=== PATIENT | male | born 1965 | race African-American/Black ===

== ENCOUNTER 2022-01-12 08:08 | Inpatient (IN) | payer BC, OTHER ==
[~2022-01-12] VITALS: Ht 177.8 cm; Wt 99.2 kg
[2022-01-12] MEDS ORDERED: SODIUM CHLORIDE 0.9% 1,000 ML IV ONE (08:15)
[2022-01-12] MEDS ORDERED: DONNATAL 5ml ORAL Elix (BELLADONNA ALK-PHENOBARB) PO ONE (09:15)
[2022-01-12] MEDS ORDERED: LIDOCAINE VISCOUS 2% 15ML UD PO ONE (09:15)
[2022-01-12] MEDS ORDERED: ALUM & MAG HYDROX-SIMETH LIQ(MAALOX) 30 ML PO ONE (09:15)
[2022-01-12 09:26] LABS: Basophils # (auto) 0 10 ^3/uL (0-0.2); Basophils % (auto) 0.5 % (0.0-2.0); Eosinophils # (auto) 0.1 10 ^3/uL (0-0.8); Eosinophils % (auto) 2.1 % (0.0-7.0); Hematocrit 40.6 % (41.0-53.0); Hemoglobin 14.1 g/dL (13.5-17.5); Lymphocytes % (auto) 32.3 % (10.0-50.0); Mean Corpuscular Hemoglobin 33.3 pg (28.0-32.0); Mean Corpuscular Hgb Conc. 34.9 g/dL (32.0-36.0); Mean Corpuscular Volume 95.5 fL (80.0-100.0); Monocytes # (auto) 0.4 10 ^3/uL (0-1.3); Monocytes % (auto) 5.9 % (0.0-12.0); Neutrophils # (auto) 3.7 10 ^3/uL (1.6-8.6); Neutrophils % (auto) 59.2 % (37.0-80.0); Nucleated Red Blood Cells % 0.1 %; Red Blood Cells 4.25 10^6/uL (4.5-5.90); Red Cell Distribution Width 13.1 % (11.8-14.3); White Blood Cell 6.2 10^3/uL (4.4-10.8)
[2022-01-12 11:20] LABS: Urine Bacteria NONE SEEN /hpf (None Seen); Urine Blood Negative /uL (Negative); Urine Mucus FEW (None Seen); Urine Specific Gravity 1.027 (1.001-1.035); Urine WBC 1 /hpf (0 - 3)
[2022-01-12 11:24] LABS: Alanine Aminotransferase 19 U/L (16-61); Alkaline Phosphatase 32 U/L (45-117); Anion Gap 5 (5-15); Aspartate Aminotransferase 12 U/L (15-37); BUN/Creatinine Ratio 12.6; Bilirubin, Total 0.4 mg/dL (0.2-1.0); Blood Urea Nitrogen 12 mg/dL (7-18); Calcium 8.8 mg/dL (8.5-10.1); Carbon Dioxide 24 mmol/L (21-32); Chloride 111 mmol/L (98-107); GFR African American 105 mL/min; GFR Non-African American 87 mL/min; Glucose 125 mg/dL (74-106); Potassium 3.9 mmol/L (3.5-5.1); Sodium 140 mmol/L (136-145)
[2022-01-12 11:25] LABS: Albumin 3.2 g/dL (3.4-5.0); Lipase 432 U/L (73-393)
[2022-01-12] MEDS ORDERED: metroNIDAZOLE 500MG/100ML 100 ML IV ONE (11:45)
[2022-01-12] MEDS ORDERED: cefTRIAXone 1GM/50ML D5W 50 ML IV ONE (11:45)
[2022-01-12] MEDS ORDERED: DOCUSATE SOD 100 MG CAP PO PRN (12:00)
[2022-01-12] MEDS ORDERED: NITROGLYCERIN 0.4 MG SL TAB SL PRN (12:00)
[2022-01-12] MEDS ORDERED: ONDANSETRON HCL 4 MG/2 ML VIAL IV PRN (12:00)
[2022-01-12] MEDS ORDERED: MORPHINE SULFATE INJECTION 2 MG/ML SYRG IV PRN (12:00)
[2022-01-12] MEDS ORDERED: hydrALAZINE HCL 20 MG/ML VL IV PRN (12:00)
[2022-01-12] MEDS ORDERED: IPRATROPIUM BROM 0.5 MG/2.5ML INH SOL NEB ONE (12:00)
[2022-01-12] MEDS ORDERED: MULTIPLE VITAMINS W/ MINERALS TAB PO ONE (12:00)
[2022-01-12] MEDS ORDERED: HYDROcodone-ACET 5/325MG TAB PO PRN ×2 (12:00)
[2022-01-12] MEDS ORDERED: HYDROcodone-ACET 5/325MG TAB PO ONE (12:00)
[2022-01-12] MEDS ORDERED: MEROPENEM 1GM IVPB 100 ML IV ONE (12:15)
[2022-01-12] MEDS: HYDROmorphone HCL 2 MG/ML VL IV PRN ×2 (12:32→21:21)
[2022-01-12] MEDS: SODIUM CHLORIDE 0.9% 1,000 ML IV SCH ×2 (12:39→20:45)
[2022-01-12] MEDS ORDERED: NIFEdipine ER 30 MG TAB PO ONE (12:45)
[2022-01-12 13:20] LABS: Magnesium 2.3 mg/dL (1.6-2.6); Phosphorus 3.1 mg/dL (2.5-4.90)
[2022-01-12 14:13] LABS: INR 1.05 (0.9-1.15); Partial Thromboplastin Time 26.2 sec (23.6-33.0)
[2022-01-12] MEDS: IPRATROPIUM BROM 0.5 MG/2.5ML INH SOL NEB SCH ×2 (19:19→22:37)
[2022-01-12] MEDS: MEROPENEM 1GM IVPB 100 ML IV SCH ×3 (20:30→23:25)
[2022-01-12] MEDS: PANTOPRAZOLE 40 MG/10 ML VIAL INJ IV SCH (22:57)
[2022-01-12] MEDS: ATORVASTATIN 20 MG TAB PO SCH (22:58)
[2022-01-13] MEDS: IPRATROPIUM BROM 0.5 MG/2.5ML INH SOL NEB SCH ×2 (02:00→07:19)
[2022-01-13] MEDS: MEROPENEM 1GM IVPB 100 ML IV SCH ×4 (04:30→20:31)
[2022-01-13 06:11] LABS: Basophils # (auto) 0 10 ^3/uL (0-0.2); Basophils % (auto) 0.8 % (0.0-2.0); Eosinophils # (auto) 0.1 10 ^3/uL (0-0.8); Eosinophils % (auto) 1.8 % (0.0-7.0); Hematocrit 39.2 % (41.0-53.0); Hemoglobin 13.2 g/dL (13.5-17.5); Lymphocytes % (auto) 37.5 % (10.0-50.0); Mean Corpuscular Hemoglobin 31.9 pg (28.0-32.0); Mean Corpuscular Hgb Conc. 33.7 g/dL (32.0-36.0); Mean Corpuscular Volume 94.6 fL (80.0-100.0); Monocytes # (auto) 0.4 10 ^3/uL (0-1.3); Monocytes % (auto) 8.3 % (0.0-12.0); Neutrophils # (auto) 2.8 10 ^3/uL (1.6-8.6); Neutrophils % (auto) 51.6 % (37.0-80.0); Nucleated Red Blood Cells % 0.1 %; Red Blood Cells 4.15 10^6/uL (4.5-5.90); Red Cell Distribution Width 12.9 % (11.8-14.3); White Blood Cell 5.3 10^3/uL (4.4-10.8)
[2022-01-13 06:29] LABS: INR 1.05 (0.9-1.15); Partial Thromboplastin Time 26.1 sec (23.6-33.0)
[2022-01-13 06:37] LABS: Potassium 3.8 mmol/L (3.5-5.1)
[2022-01-13 07:07] LABS: Albumin 2.9 g/dL (3.4-5.0); BUN/Creatinine Ratio 8.2; Bilirubin, Total 0.6 mg/dL (0.2-1.0); CRP High Sensitivity 1.07 mg/dL (< 0.3); Calcium 8.1 mg/dL (8.5-10.1); Magnesium 1.9 mg/dL (1.6-2.6); Total Protein 6.7 g/dL (6.4-8.2); Uric Acid 4.4 mg/dL (3.5-7.2)
[2022-01-13 09:00] VITALS: BP 121/68
[2022-01-13] MEDS: ASPirin 81 mg TAB PO SCH (10:00)
[2022-01-13] MEDS: PANTOPRAZOLE 40 MG/10 ML VIAL INJ IV SCH ×2 (10:00→21:39)
[2022-01-13] MEDS: NIFEdipine ER 30 MG TAB PO SCH (10:00)
[2022-01-13] MEDS: ENOXAPARIN SOD 40 MG/0.4 ML SYRINGE SC SCH (10:00)
[2022-01-13] MEDS: MULTIPLE VITAMINS W/ MINERALS TAB PO SCH (10:00)
[2022-01-13 13:00] VITALS: BP 127/65
[2022-01-13] MEDS: HYDROmorphone HCL 2 MG/ML VL IV PRN (18:50)
[2022-01-13] MEDS: SODIUM CHLORIDE 0.9% 1,000 ML IV SCH (20:32)
[2022-01-13] MEDS: ATORVASTATIN 20 MG TAB PO SCH (21:38)
[2022-01-13 22:00] VITALS: BP 111/61
[2022-01-14] MEDS: MEROPENEM 1GM IVPB 100 ML IV SCH ×2 (04:43→12:30)
[2022-01-14 05:00] VITALS: BP 132/71
[2022-01-14 09:00] VITALS: BP_SYST 125; BP_SYST 138; BP_DIAS 68; BP_DIAS 71
[2022-01-14] MEDS: ASPirin 81 mg TAB PO SCH (10:00)
[2022-01-14] MEDS: NIFEdipine ER 30 MG TAB PO SCH (10:00)
[2022-01-14] MEDS: ENOXAPARIN SOD 40 MG/0.4 ML SYRINGE SC SCH (10:00)
[2022-01-14] MEDS: PANTOPRAZOLE 40 MG/10 ML VIAL INJ IV SCH (10:00)
[2022-01-14] MEDS: MULTIPLE VITAMINS W/ MINERALS TAB PO SCH (10:00)
[2022-01-14] MEDS ORDERED: PANT40T PO (11:32)
[2022-01-14] MEDS ORDERED: HYDR-4902 PO (11:40)
[2022-01-14 13:59] VITALS: BP 125/68
== END 2022-01-14 15:27 | disposition home or self-care (01) | DRG 440 ==
LOC: ER 08:08 → OVERFLOW 11:47 → WEST WING 16:00
PROVIDERS: ADMIT Hospitalist; ATTEND Family Medicine
DX: K85.90 Acute pancreatitis without necrosis or infection, unspecified (principal); E66.01 Morbid (severe) obesity due to excess calories; E78.5 Hyperlipidemia, unspecified; E88.81 Metabolic syndrome and other insulin resistance; I10 Essential (primary) hypertension; R00.1 Bradycardia, unspecified; K29.70 Gastritis, unspecified, without bleeding; F17.210 Nicotine dependence, cigarettes, uncomplicated; Z20.822 Contact with and (suspected) exposure to COVID-19; R74.8 Abnormal levels of other serum enzymes; Z68.31 Body mass index [BMI] 31.0-31.9, adult; Z85.818 Personal history of malignant neoplasm of other sites of lip, oral cavity, and pharynx; Z88.5 Allergy status to narcotic agent; Z71.6 Tobacco abuse counseling
CPT/HCPCS: 36415; 74176; 76705; 78226; 80053; 80061; 81001; 82728; 83036; 83605; 83615; 83690; 83735; 83880; 84100; 84443; 84484; 84550; 85025; 85379; 85610; 85652; 85730; 86141; 86301; 87040; 87086; 87426; 93005; 94640; 96361; 96365; 96368; 96375; C9113; G0378; J0696; J2185; J2405; J3490

== ENCOUNTER 2025-08-26 11:14 | Inpatient (IN) | payer BC ==
[~2025-08-26] VITALS: Ht 177.8 cm; Wt 105.0 kg
[~2025-08-26 11:14] MED LIST: HYDR-4902 PO; PANT40T PO
--- NOTE | 2025-08-26 12:03 | ED.PDOC ---
SOB-HPI HPI Comments 60-year-old male who presents to the ED complaint of shortness of breath and cough Patient states he has been having symptoms for the past 6 weeks intermittently but states specifically the last 3 days he was notes increased worsening of his symptoms Patient states that he was at local ED 2 weeks prior and states that he was g iven and albuterol inhaler and steroids Patient states he has been compliant with his inhaler but has not been using his prescribed steroids Patient in the past he was diagnosed with COPD but states he was never prescribed medications Patient's ED has a notable blood pressure of 179/83, but otherwise stable vitals including O2 saturation of the 97% on room air Patient otherwise denies any other symptoms at this time. Past Medical History: Hypertension, obesity, hyperlipidemia Past Surgical History: Hernia repair Medications: Unknown Allergy: morphine Social history: Endorses ETOH use, chronic smoker, denies drug use JASPER: SOB/COUGH/WHEEZE HPI: Poor Historian. REVIEW OF SYSTEMS: CONSTITUTIONAL: Denies acute: fever, diaphoresis, chills, generalized weakness. HEAD: Denies acute: headache, photophobia Eyes: Denies acute: Double vision, vision loss, eye pain, eye discharge. EARS: Denies acute: tinnitus, hearing loss, ear discharge, ear pain, THROAT: Denies acute: sore throat, swelling, difficulty swallowing , pain with swallowing, change in voice. NECK: Denies acute: neck pain, neck swelling, stiff neck. HEART: Denies acute : chest pain, palpitations, LUNGS: Denies acute: hemoptysis ABDOMEN: Denies acute: abdominal pain, Nausea, Vomiting, diarrhea, melena , hematemesis, hematochezia SKIN: Denies acute: rash, redness, lesions, itchiness. EXTREMITIES: Denies acute: calf pain, numbness, tingling, weakness, denies pain in extremity. Denies acute: Low back pain. Neuro: Denies acute: focal neurological deficit, motor or sensory focal neurological deficit, tremors, seizure like activity, confusion, dizziness, change in mental status, loss of bowel or bladder function, cauda equina like symptoms. : Denies acute: dysuria, hematuria, flank pain, increase in urinary frequency. PSYCH: Denies acute: hallucination, suicidal ideation, homicidal ideation. PHYSICAL EXAM: General: -----moderate---acute distress, awake and alert. Head: normocephalic, atraumatic. Neck: supple, trachea is midline, no swelling. Throat: Normal phonation. Eyes:, no erythema, no purulent discharge, no proptosis, no icterus. Heart: regular rate, regular rhythm, no significant murmur appreciated. Lungs: Moderate respiratory distress, Able to speak in full sentences. Bilateral wheezing, no rhonchi, no crackles. No stridors Abdomen: non tender to palpation, non distended, soft, no guarding, no rebound, + bowel sounds. Neuro: Awake, Alert, oriented to name, self, situation, follows commands GCS=15. Speech is normal. Skin: no petechia, no purpura, no cyanosis, non-pale, not jaundice. Lower extremities: --trace bilateral- Pitting edema no deformity, no focal swelling, no calf TTP. Makes eye contact. moves all four extremities. Face: no apparent facial droop. Ambulating in the ED independently. ED COURSE: DISCLAIMER: This medical document was created using an electronic medical record system with voice recognition software and computerized dictation system. Although this document has been carefully reviewed, there might still be some phonetic and typographical errors. Occasional wrong-word or "sound-alike" substitutions may have occurred due to the inherent limitations of voice recognition software. These areas are purely typographical due to imperfections of the software programs and do not reflect any compromise in the patient's medical care. Please read the chart carefully and recognize, using context, where these substitutions have occurred. Chief Complaint: Shortness of Breath Time Seen by MD: 11:25 Reviewed notes: Medications (Amenorrhea then), Allergies Information Source: Patient Mode of Arrival: Ambulatory Past Medical History Surgical History: Hernia Repair Family History Family History: Reviewed,noncontributory to illness Social History Smoker: Cigarettes Alcohol: Occasionally Drugs: Denies Drug Use Lives In: Home EKG EKG : Pulse Rate (adult): 76 [place]: Normal Cardiac Rhythm: NSR Block: None Hypertrophy: None ST: Normal Comments leads III, AVF show T-wave inversions Was a procedure done? Was a procedure done?: No Differential Dx Differential Diagnosis: Other (DDx include ACS, unstable angina, anxiety, PE, pneumothroax, neoplasm, cardiac ischemia, COPD, asthma, CHF, pleural effusion, tobacco abuse, pneumonia, hypoxia, hypercapnia, anemia., infection/sepsis., pulmonary edema. Asthma, Cardiac tamponade, infection.) X-Ray, Labs, Meds, VS Vital Signs Date Time Temp Pulse Resp B/P (MAP) Pulse Ox O2 Delivery O2 Flow Rate FiO2 08/26/25 17:05 98.2 73 17 150/82 (104) 97 98.2 08/26/25 15:20 72 18 98 Room Air 08/26/25 15:20 98.7 72 18 162/88 (112) 98 98.7 08/26/25 13:34 76 08/26/25 12:30 20 97 Room Air* 0 21 08/26/25 11:24 76 08/26/25 11:16 98.1 93 20 179/83 94 98.1 Lab Test 08/26/25 14:37 08/26/25 14:23 08/26/25 12:33 08/26/25 10:36 Range/Units Troponin I High Sensitivity 5 4 4 </=54 ng/L Urine Color Colorless Yellow Urine Clarity Clear Clear Urine pH 5.5 5.0-9.0 Urine Specific [place] 1.008 1.001-1.035 Urine Protein Negative Negative Urine Ketones Negative Negative Urine Blood Negative Negative /uL Urine Nitrite Negative Negative Urine Bilirubin Negative Negative Urine Urobilinogen Normal Negative mg/dL Urine Leukocyte Esterase Negative Negative /uL Urine RBC <1 0 - 3 /hpf Urine Microscopic WBC < 1 0-3 /HPF Urine Squamous Epithelial Cells None seen <5 /hpf Urine Bacteria None seen None Seen /hpf Urine Glucose Normal Normal mg/dL White Blood Count 7.8 4.4-10.8 10^3/uL Red Blood Count 4.01 L 4.5-5.90 10^6/uL Hemoglobin 13.2 L 13.5-17.5 g/dL Hematocrit 38.6 L 41.0-53.0 % Mean Corpuscular Volume 96.2 80.0-100.0 fL Mean Corpuscular Hemoglobin 32.8 H 28.0-32.0 pg Mean Corpuscular Hemoglobin Concent 34.0 32.0-36.0 g/dL Red Cell Distribution Width 13.6 11.8-14.3 % Platelet Count 349 140-450 10^3/uL Mean Platelet Volume 7.4 6.9-10.8 fL Neutrophils (%) (Auto) 40.1 37.0-80.0 % Lymphocytes (%) (Auto) 35.5 10.0-50.0 % Monocytes (%) (Auto) 7.4 0.0-12.0 % Eosinophils (%) (Auto) 16.3 H 0.0-7.0 % Basophils (%) (Auto) 0.7 0.0-2.0 % Neutrophils # (Auto) 3.1 1.6-8.6 10 ^3/uL Lymphocytes # (Auto) 2.8 0.4-5.4 10 ^3/uL Monocytes # (Auto) 0.6 0-1.3 10 ^3/uL Eosinophils # (Auto) 1.3 H 0-0.8 10 ^3/uL Basophils # (Auto) 0.1 0-0.2 10 ^3/uL Nucleated Red Blood Cells 0.0 % Sodium Level 144 136-145 mmol/L Potassium Level 4.3 3.5-5.1 mmol/L Chloride Level 108 H 98-107 mmol/L Carbon Dioxide Level 26 20-31 mmol/L Anion Gap 10 5-15 Blood Urea Nitrogen 11 9-23 mg/dL Creatinine 0.99 0.700-1.30 mg/dL Glomerular Filtration Rate Calc 86 >90 mL/min BUN/Creatinine Ratio 11.1 10.0-20.0 Serum Glucose 122 H 74-106 mg/dL Lactic Acid Level 1.7 0.4-2.0 mmol/L Calcium Level 9.5 8.7-10.4 mg/dL Total Bilirubin 0.2 0.2-1.0 mg/dL Aspartate Amino Transferase (AST) 16 13-40 U/L Alanine Aminotransferase (ALT) 20 7-40 U/L Alkaline Phosphatase 41 L 46-116 U/L B-Type Natriuretic Peptide 3.88 0-100 pg/mL Total Protein 7.3 5.7-8.2 g/dL Albumin 4.5 3.2-4.8 g/dL Current Medications Medications (Trade) Dose Ordered Sig/Serafin Route Start Time Stop Time Status Last Admin Albuterol (Ventolin Medneb) 2.5 mg ONCE ONCE NEB 08/26/25 11:45 08/26/25 11:46 DC 08/26/25 12:28 Ipratropium [place] (Atrovent Medneb) 1 mg ONCE ONCE NEB 08/26/25 11:45 08/26/25 11:46 DC 08/26/25 12:28 Methylprednisolone Sodium Succinate (Solu Medrol) 125 mg ONCE ONCE IV 08/26/25 11:45 08/26/25 11:46 DC 08/26/25 14:[address] [address] Ph: [phone] DIAGNOSTIC IMAGING Diagnostic Imaging Report : [id number] Signed PATIENT: JAZZMINE CARROLL ACCT: [id number] UNIT: [id number] : 1965 LOC: ER ROOM / BED: / AGE / SEX: 60 / M ADM STATUS: REG ER SERVICE 24 ORDERING PHYSICIAN: VALE GRIFFITH DO PROCEDURE(s): CXRP - CHEST PORTABLE REASON: cp/sob/cough ORDER NUMBER(s): [id number], ACCESSION NUMBER(s): [id number] CHEST RADIOGRAPH Indication: cp/sob/cough Technique: XY CHEST PORTABLE Comparison: None FINDINGS: The cardiac silhouette is unremarkable. The lungs demonstrate no pulmonary airsp ladonna consolidation. The pulmonary vasculature is unremarkable. There is no pleural effusion. There is no pneumothorax. IMPRESSION: No pulmonary airspace consolidation. ATED BY: MAGO ROSS MD DICTATED DATE/TIME: 08/26/251216 SIGNED BY: MAGO ROSS MD SIGNED DATE/TIME: 08/26/251216 CC: Time of 1ST Reevaluation: 20:18 Reevaluation 1ST: Improved Patient Education/Counseling: Diagnosis, Treatment Family Education/Counseling: No Family Present Comments MDM: patient presented with the above HPI.---dyspnea---workup was initiated. patient was found with the above mentioned diagnosis. the following medications were ordered: please refer to order lists of meds and tests obtained by myself Dr. Griffith. Patient ED course and VS have been stabilized. Patient has been reassessed in the ED and remained in a stable condition. Pertinent incidental findings were discussed with the patient and/or family. Patient/family voices understanding and is agreeable with plan. Patient has been observed in the ED adequate length of time to insure improvement/stability. Escalation of care considered: Consideration of escalation to observation or admission Patient was ADMITTED to the medicine team for further evaluation and treatment of their presentation. All the reports of any imaging studies that were ordered by myself were reviewed by myself. Departure 1 Departure Time of Disposition: 12:02 Impression: Primary Impression: Acute respiratory distress Additional Impressions: Wheezing COPD exacerbation Disposition: ADMITTED INPATIENT Admit to: Tele Condition: Guarded Discharged With: Self Critical Care Note Critical Care Time?: Yes (35 min-critical care time only) Heart Score Heart Score: Heart Score Response (Comments) Value History Moderate Suspicious 1 EKG Repolarization Disturb 1 Age 45-64 1 Risk Factors >3 or Hx ASHD 2 Troponin Normal limit 0 Total 5 I personally scribed for VALE GRIFFITH DO ([email or web address]) on 08/26/25 at 13:22. Electronically submitted by Jovan Cary ([email or web address]). I personally scribed for VALE GRIFFITH DO ([email or web address]) on 08/26/25 at 13:34. Electronically submitted by Jovan Cary ([email or web address]). VALE GRIFFITH DO Aug 26, 2025 12:03
--- NOTE | 2025-08-26 12:16 | DVH ---
CHEST RADIOGRAPH Indication: cp/sob/cough Technique: XY CHEST PORTABLE Comparison: None FINDINGS: The cardiac silhouette is unremarkable. The lungs demonstrate no pulmonary airspace consolidation. Th e pulmonary vasculature is unremarkable. There is no pleural effusion. There is no pneumothorax. IMPRESSION: No pulmonary airspace consolidation.
[2025-08-26 12:22] LABS: Alanine Aminotransferase 20 U/L (7-40); Albumin 4.5 g/dL (3.2-4.8); Anion Gap 10 (5-15); BUN/Creatinine Ratio 11.1 (10.0-20.0); Blood Urea Nitrogen 11 mg/dL (9-23); Calcium 9.5 mg/dL (8.7-10.4); Carbon Dioxide 26 mmol/L (20-31); Potassium 4.3 mmol/L (3.5-5.1); Sodium 144 mmol/L (136-145); Total Protein 7.3 g/dL (5.7-8.2)
[2025-08-26 12:24] LABS: Alkaline Phosphatase 41 U/L (46-116); Bilirubin, Total 0.2 mg/dL (0.2-1.0); Chloride 108 mmol/L (98-107); Glucose 122 mg/dL (74-106); Hematocrit 38.6 % (41.0-53.0); Hemoglobin 13.2 g/dL (13.5-17.5); Mean Corpuscular Hemoglobin 32.8 pg (28.0-32.0); Mean Corpuscular Volume 96.2 fL (80.0-100.0); Nucleated Red Blood Cells % 0.0 %
[2025-08-26] MEDS: ALBUTEROL SULF 2.5 MG/0.5ML(0.5%) NEB SOLN NEB ONE (12:28)
[2025-08-26] MEDS: IPRATROPIUM BROM 0.5 MG/2.5ML INH SOL NEB ONE (12:28)
[2025-08-26] MEDS: methylPREDNISolone SOD SUCC 125 MG/2 ML VL IV ONE (14:31)
[2025-08-26 14:52] LABS: Urine Protein, UAD Negative (Negative)
--- NOTE | 2025-08-26 18:13 | DVHHPRES ---
History of Present Illness Resident Creating Document: JHBrienSterlingDARRELL KatzMANUEL RESIDENT History of Present Illness Patient is a 60-year-old male with no significant past medical history presented to the ED with a chief complaint of worsening shortness of breath for the last 3 days. Patient reports that in the last 2 months he has been to the emergency room 3 times and has been prescribed albuterol inhaler, prednisone, Advair inhaler which apparently held with the patient was noncompliant. Since Tuesday she has been having worsening shortness of breath, worsened on lying down and reports that he has been sleeping sitting up in the chair for the last few days. Patient also reports of cough mostly dry but sometimes associated with greenish sputum. He denies any fever, chills, recent sick contacts. He has been using albuterol 3 to 4 times a day. He denied any chest pain and does not report any history of cardiomyopathy/NM in the past. Past medical history: Possible COPD Surgical history: None Home medications: Albuterol inhaler as needed, Advair inhaler Social history: Patient reports previous history of about 15-20 pack year, occasional alcohol intake but denies any drug use Review of Systems Review of Systems Patient is currently on room air. Has cough which is mostly dry, does not feel short of breath while sitting in the bed and is able to talk in full sentences. Denies chest pain, nausea, vomiting, abdominal pain Has some mild leg swelling bilaterally Allergies: Coded Allergies: Morphine (Verified Allergy, Unknown, 01/12/22) Medications Current Medications Medications Dose Ordered Sig/Serafin Route Start Time Stop Time Status Last Admin Dose Admin Albuterol 2.5 mg Q6HR NEB 08/26/25 18:00 Ipratropium [place] 0.5 mg Q6HR NEB 08/26/25 18:00 Methylprednisolone Sodium Succinate 40 mg BID IV 08/26/25 22:00 Furosemide 40 mg DAILY IV 08/27/25 10:00 Losartan Potassium 50 mg DAILY PO 08/27/25 10:00 Pantoprazole Sodium 40 mg DAILY@0600 PO 08/27/25 06:00 Ceftriaxone Sodium 50 ml @ 100 mls/hr DAILY@09 IV 08/27/25 09:00 Azithromycin 500 mg DAILY PO 08/27/25 10:00 Budesonide 0.25 mg BID NEB 08/26/25 22:00 Exam Vital Signs Vital Signs Date Time Temp Pulse Resp B/P (MAP) Pulse Ox O2 Delivery O2 Flow Rate FiO2 08/26/25 17:05 98.2 73 17 150/82 (104) 97 98.2 08/26/25 15:20 Room Air 08/26/25 12:30 0 21 Exam Gen - no pallor, no icterus, no cyanosis, no clubbing, bilateral 2+ pitting edema Skin - Patients skin is warm and dry. HEENT - normocephalic, atraumatic, moist mucous membranes. Neck - full ROM, no LAD, no JVD Pulmonary - B/L equal breath sounds, mild diffuse rhonchi, diffuse expiratory wheezing cardiovascular - regular S1,S2 heard, no added sounds, no murmurs heard. peripheral pulses normal radial 2+, pedal 2+ GI - soft, nontender abdomen. no hepatospleenomegaly. Bowel sounds normoactive Neurological - Patient is A/O X 3 . Bilateral upper extremity strength 5/5, charles ateral lower extremity strength 5/5, no facial droop, normal speech, no tremor, no sensory deficiets. Labs/Xrays Labs Test 08/26/25 14:37 08/26/25 14:23 08/26/25 10:36 Range/Units Troponin I High Sensitivity 5 </=54 ng/L Urine Color Colorless Yellow Urine Clarity Clear Clear Urine pH 5.5 5.0-9.0 Urine Specific [place] 1.008 1.001-1.035 Urine Protein Negative Negative Urine Ketones Negative Negative Urine Blood Negative Negative /uL Urine Nitrite Negative Negative Urine Bilirubin Negative Negative Urine Urobilinogen Normal Negative mg/dL Urine Leukocyte Esterase Negative Negative /uL Urine RBC <1 0 - 3 /hpf Urine Microscopic WBC < 1 0-3 /HPF Urine Squamous Epithelial Cells None seen <5 /hpf Urine Bacteria None seen None Seen /hpf Urine Glucose Normal Normal mg/dL White Blood Count 7.8 4.4-10.8 10^3/uL Red Blood Count 4.01 L 4.5-5.90 10^6/uL Hemoglobin 13.2 L 13.5-17.5 g/dL Hematocrit 38.6 L 41.0-53.0 % Mean Corpuscular Volume 96.2 80.0-100.0 fL Mean Corpuscular Hemoglobin 32.8 H 28.0-32.0 pg Mean Corpuscular Hemoglobin Concent 34.0 32.0-36.0 g/dL Red Cell Distribution Width 13.6 11.8-14.3 % Platelet Count 349 140-450 10^3/uL Mean Platelet Volume 7.4 6.9-10.8 fL Neutrophils (%) (Auto) 40.1 37.0-80.0 % Lymphocytes (%) (Auto) 35.5 10.0-50.0 % Monocytes (%) (Auto) 7.4 0.0-12.0 % Eosinophils (%) (Auto) 16.3 H 0.0-7.0 % Basophils (%) (Auto) 0.7 0.0-2.0 % Neutrophils # (Auto) 3.1 1.6-8.6 10 ^3/uL Lymphocytes # (Auto) 2.8 0.4-5.4 10 ^3/uL Monocytes # (Auto) 0.6 0-1.3 10 ^3/uL Eosinophils # (Auto) 1.3 H 0-0.8 10 ^3/uL Basophils # (Auto) 0.1 0-0.2 10 ^3/uL Nucleated Red Blood Cells 0.0 % Sodium Level 144 136-145 mmol/L Potassium Level 4.3 3.5-5.1 mmol/L Chloride Level 108 H 98-107 mmol/L Carbon Dioxide Level 26 20-31 mmol/L Anion Gap 10 5-15 Blood Urea Nitrogen 11 9-23 mg/dL Creatinine 0.99 0.700-1.30 mg/dL Glomerular Filtration Rate Calc 86 >90 mL/min BUN/Creatinine Ratio 11.1 10.0-20.0 Serum Glucose 122 H 74-106 mg/dL Lactic Acid Level 1.7 0.4-2.0 mmol/L Calcium Level 9.5 8.7-10.4 mg/dL Total Bilirubin 0.2 0.2-1.0 mg/dL Aspartate Amino Transferase (AST) 16 13-40 U/L Alanine Aminotransferase (ALT) 20 7-40 U/L Alkaline Phosphatase 41 L 46-116 U/L B-Type Natriuretic Peptide 3.88 0-100 pg/mL Total Protein 7.3 5.7-8.2 g/dL Albumin 4.5 3.2-4.8 g/dL SEPSIS Sepsis Screen Date sepsis recognized/suspect: Aug 26, 2025 Time Sepsis recognized/suspect: 1118 Recent Procedure: No On Antibiotic Therapy: No Respiratory Rate >20: No Heart Rate >90: Yes Temp<36 C (96.8 F) or >38.3 C: No SBP <90 or MAP <65 mmHG: No New Acute Mental Status Change: No Is the patient on CPAP, BIPAP,: No Physician Orders Process Development Engineer (08/26/25 ) Chest Portable (08/26/25 11:25) Electrocardigram (08/26/25 11:25) Electrocardigram (08/26/25 12:25) Electrocardigram (08/26/25 14:25) Admit (08/26/25 17:06) Oxygen By Nasal Cannula (08/26/25 17:06) Stat Ekg For Chest Pain (08/26/25 17:06) Covid19 Antigen Angela (08/26/25 ) Rapid Influenza A&B (08/26/25 17:06) Mrsa Screen (08/26/25 17:06) Albuterol Medneb (Ventolin Medneb) (08/26/25 18:00) Ipratropium Medneb (Atrovent Medneb) (08/26/25 18:00) Methylprednisolone Sod Succ (Solu Medrol (08/26/25 22:00) Furosemide Injection (Lasix Injection) (08/26/25 18:00) Furosemide Injection (Lasix Injection) (08/27/25 10:00) Losartan Tablet (Cozaar Tablet) (08/27/25 10:00) Pantoprazole Tablet (Protonix Tablet) (08/27/25 06:00) Ceftriaxone 1gm/50ml (Rocephin) (08/27/25 09:00) Azithromycin Tablet (Zithromax Tablet) (08/27/25 10:00) Budesonide (Inhalation) (Pulmicort) (08/26/25 22:00) Respiratory Culture W/ Gs (08/26/25 17:06) Echo 2d Mode Cardiac Dop (08/26/25 17:41) Vital Signs Date Time Temp Pulse Resp B/P (MAP) Pulse Ox O2 Delivery O2 Flow Rate FiO2 08/26/25 17:05 98.2 73 17 150/82 (104) 97 98.2 08/26/25 15:20 72 18 98 Room Air 08/26/25 15:20 98.7 72 18 162/88 (112) 98 98.7 08/26/25 13:34 76 08/26/25 12:30 20 97 Room Air* 0 21 08/26/25 11:24 76 08/26/25 11:16 98.1 93 20 179/83 94 98.1 Laboratory Tests Test 08/26/25 10:36 Lactic Acid Level 1.7 mmol/L (0.4-2.0) White Blood Count 7.8 10^3/uL (4.4-10.8) Medications Medications Dose Ordered Sig/Serafin Route Start Time Stop Time Status Last Admin Dose Admin Albuterol 2.5 mg ONCE ONCE NEB 08/26/25 11:45 08/26/25 11:46 DC 08/26/25 12:28 2.5 MG Ipratropium [place] 1 mg ONCE ONCE NEB 08/26/25 11:45 08/26/25 11:46 DC 08/26/25 12:28 1 MG Methylprednisolone Sodium Succinate 125 mg ONCE ONCE IV 08/26/25 11:45 08/26/25 11:46 DC 08/26/25 14:31 125 MG Assessment/Plan Assessment/Plan Shortness of breath likely due to COPD exacerbation COPD exacerbation likely due to pneumonia Pneumonia likely viral versus bacterial Possible asthma with exacerbation - Solu-Medrol IV b.i.d. 40 mg - duo nebs q.6 hours - Pulmicort med neb - on IV ceftriaxone and vancomycin - COVID and influenza pending - MRSA screen pending - high eosinophilic count Hypertensive heart disease possible heart failure - echocardiogram pending - mild bilateral pedal edema - Lasix 40 mg PUD prophylaxis: Protonix Goals of care discussed with the patient for over 31 minutes. Full code Plan discussed with Dr. Child Plan discussed with: Patient My Orders Orders - WANG TENORIO RESIDENT Procedure Category Date Status Time Admit ADMIT 08/26/25 Transmitted 17:06 Oxygen By Nasal RT 08/26/25 Transmitted Cannula 17:06 Stat Ekg For Chest WILMA 08/26/25 In Process Pain 17:06 Covid19 Antigen Angela LAB 08/26/25 Logged Rapid Influenza A&B LAB 08/26/25 Logged 17:06 Mrsa Screen CASIE 08/26/25 Logged 17:06 Albuterol Medneb PHA 08/26/25 In Process (Ventolin Medneb) 18:00 Ipratropium Medneb PHA 08/26/25 In Process (Atrovent Medneb) 18:00 Methylprednisolone PHA 08/26/25 In Process Sod Succ (Solu Medrol 22:00 Furosemide Injection PHA 08/26/25 In Process (Lasix Injection) 18:00 Furosemide Injection PHA 08/27/25 In Process (Lasix Injection) 10:00 Losartan Tablet PHA 08/27/25 In Process (Cozaar Tablet) 10:00 Pantoprazole Tablet PHA 08/27/25 In Process (Protonix Tablet) 06:00 Ceftriaxone 1gm/50ml PHA 08/27/25 In Process (Rocephin) 09:00 Azithromycin Tablet PHA 08/27/25 In Process (Zithromax Tablet) 10:00 Budesonide PHA 08/26/25 In Process (Inhalation) 22:00 Respiratory Culture CASIE 08/26/25 Logged W/ Gs 17:06 Echo 2d Mode Cardiac US 08/26/25 Logged DOP 17:41 Date of Service: Aug 26, 2025 Billing Provider: JESSICA CHILD MD Common Visit Codes: [id number] INP/OBS CARE (HIGH) Secondary Visit Codes: [id number] CARE PLAN 30 MINUTES WANG TENORIO RESIDENT Aug 26, 2025 18:13
[2025-08-26] MEDS: AZITHROMYCIN 250 MG TAB PO ONE (18:46)
[2025-08-26] MEDS: LOSARTAN POTASSIUM 50 MG TAB PO ONE (18:46)
[2025-08-26] MEDS: PANTOPRAZOLE 40 MG TAB PO ONE (18:47)
[2025-08-26 18:52] VITALS: PULSE 89; RESP 18; O2SAT 97
[2025-08-26] MEDS: BUDESONIDE (INHALATION) 0.5 MG/2 ML NEB NEB SCH (18:53)
[2025-08-26] MEDS: IPRATROPIUM BROM 0.5 MG/2.5ML INH SOL NEB SCH (18:53)
[2025-08-26] MEDS: ALBUTEROL SULF 2.5 MG/0.5ML(0.5%) NEB SOLN NEB SCH (18:53)
[2025-08-26 19:00] VITALS: BP 158/83; PULSE 90; RESP 18; TEMP 98.2; O2SAT 96
[2025-08-26 19:02] VITALS: PULSE 85; RESP 18; O2SAT 99
[2025-08-26] MEDS: FUROSEMIDE 40 MG/4 ML VIAL IV ONE (19:18)
[2025-08-26 19:25] VITALS: PULSE 90; RESP 18; O2SAT 99
--- NOTE | 2025-08-26 21:11 | ECG ---
[facility] Test Date: 2025-08-26 Test Time: 11:24:03 Pat Name: JAZZMINE CARROLL Department: Room: 0296 Gender: M Manager Story: GP : 1965 Requested By: VALE GRIFFITH Order Number: [id number] Reading MD: Wilber Goel Measurements Intervals [place] Rate: 76 P: 38 MN: 124 QRS: 30 QRSD: 85 T: -6 QT: 374 QTc: 421 Interpretive Statements Sinus rhythm Nonspecific repol abnormality, diffuse leads Electronically Signed On 08-29-2025 22:05:46 PDT by Wilber Goel Please click the below link to view image of tracing.
[2025-08-26 21:32] LABS: COVID19 ANTIGEN SOFIA FIA NEGATIVE (NEGATIVE)
[2025-08-26] MEDS: methylPREDNISolone SOD SUCC 40 MG/ML VL IV SCH (22:08)
[2025-08-27] VITALS (17 sets, daily range): BP systolic 133–147; BP diastolic 68–86; PULSE 88–110; RESP 14–20; TEMP 98–99.7; O2SAT 92–100
[2025-08-27] MEDS: PANTOPRAZOLE 40 MG TAB PO SCH (05:39)
[2025-08-27] MEDS: FUROSEMIDE 40 MG/4 ML VIAL IV SCH (10:08)
[2025-08-27] MEDS: AZITHROMYCIN 250 MG TAB PO SCH (10:08)
[2025-08-27] MEDS: LOSARTAN POTASSIUM 50 MG TAB PO SCH (10:09)
[2025-08-27] MEDS: ACETAMINOPHEN 325 MG TAB PO PRN (11:29)
[2025-08-27] MEDS: methylPREDNISolone SOD SUCC 40 MG/ML VL IV SCH (17:54)
[2025-08-27] MEDS: BUDESONIDE (INHALATION) 0.5 MG/2 ML NEB NEB SCH (19:14)
[2025-08-27] MEDS: LEVALBUTEROL HCL 1.25 MG/3 ML NEB NEB SCH (19:14)
[2025-08-27] MEDS: ACETYLCYSTEINE 20%(200MG/ML) SOL 4ML NEB SCH (19:15)
--- NOTE | 2025-08-27 19:52 | DVHPNRES ---
Progress Note Date Seen: Aug 27, 2025 Resident Creating Document: BEVERLY GUADARRAMA RESIDENT Medical Necessity Reason Pt with a Central, PICC or Fol: No Subjective Review of Systems Patient is a 60-year-old male with no significant past medical history presented to the ED with a chief complaint of worsening shortness of breath for the last 3 days. Patient reports that in the last 2 months he has been to the emergency room 3 times and has been prescribed albuterol inhaler, prednisone, Advair inhaler which apparently held with the patient was noncompliant. Since Tuesday she has been having worsening shortness of breath, worsened on lying down and reports that he has been sleeping sitting up in the chair for the last few days. Patient also reports of cough mostly dry but sometimes associated with greenish sputum. He denies any fever, chills, recent sick contacts. He has been using albuterol 3 to 4 times a day. He denied any chest pain and does not report any history of cardiomyopathy/DE in the past. Past medical history: Possible COPD Surgical history: None Home medications: Albuterol inhaler as needed, Advair inhaler Social history: Patient reports previous history of about 15-20 pack year, occasional alcohol intake but denies any drug use The patient was seen and examined at bedside. The patient reports improvement in his symptoms. He denies any chest pain, fever or any other complaints. Objective vital signs Vital Sign Date Time Temp Pulse Resp B/P (MAP) Pulse Ox O2 Delivery O2 Flow Rate FiO2 08/27/25 19:15 100 18 95 08/27/25 19:15 Room Air 08/27/25 19:15 0 21 21 08/27/25 17:00 99.0 133/72 (92) 99.0 Total Intake and Output 08/26/25 08/26/25 08/27/25 15:00 23:00 07:00 Intake Total 0 ml Balance 0 ml medications Current Medications Medications Dose Ordered Sig/Serafin Route Start Time Stop Time Status Last Admin Dose Admin Ipratropium Kersey 0.5 mg Q6HR NEB 08/26/25 18:00 08/27/25 19:14 0.5 MG Furosemide 40 mg DAILY IV 08/27/25 10:00 08/27/25 10:08 40 MG Losartan Potassium 50 mg DAILY PO 08/27/25 10:00 08/27/25 10:09 50 MG Pantoprazole Sodium 40 mg DAILY@0600 PO 08/27/25 06:00 08/27/25 05:39 40 MG Ceftriaxone Sodium 50 ml @ 100 mls/hr DAILY@09 IV 08/27/25 09:00 08/27/25 10:07 100 MLS/HR Azithromycin 500 mg DAILY PO 08/27/25 10:00 08/27/25 10:08 500 MG Acetaminophen 650 mg Q6HP PRN PO 08/27/25 10:45 08/27/25 11:29 650 MG Levalbuterol HCl 0.625 mg Q6HR NEB 08/27/25 18:00 08/27/25 19:14 0.625 MG Methylprednisolone Sodium Succinate 40 mg Q6HR IV 08/27/25 18:00 08/27/25 17:54 40 MG Budesonide 0.5 mg BID NEB 08/27/25 22:00 08/27/25 19:14 0.5 MG Acetylcysteine 200 mg Q6HR NEB 08/27/25 18:00 08/30/25 17:59 08/27/25 19:15 200 MG Guaifenesin/ Codeine Phosphate 10 ml Q4HPRN PRN PO 08/27/25 14:45 Examination Exam Gen - no pallor, no icterus, no cyanosis, no clubbing, bilateral 2+ pitting edema Skin - Patients skin is warm and dry. HEENT - normocephalic, atraumatic, moist mucous membranes. Neck - full ROM, no LAD, no JVD Pulmonary - B/L equal breath sounds, mild diffuse rhonchi, diffuse expiratory wheezing cardiovascular - regular S1,S2 heard, no added sounds, no murmurs heard. peripheral pulses normal radial 2+, pedal 2+ GI - soft, nontender abdomen. no hepatospleenomegaly. Bowel sounds normoactive Neurological - Patient is A/O X 3 . Bilateral upper extremity strength 5/5, bilateral lower extremity strength 5/5, no facial droop, normal speech, no tremor, no sensory deficiets. laboratory and microbiology Laboratory Tests 08/26/25 10:36 Test 08/26/25 10:36 Range/Units Serum Glucose 122 H 74-106 mg/dL Microbiology Date/Time Source Procedure Growth Status 08/26/25 19:15 Sputum Gram Stain - Final Resulted 08/26/25 19:15 Sputum Respiratory Culture - Preliminary Resulted 08/26/25 18:55 Nose MRSA Screen - Final Complete Labs and/or images reviewed: Labs reviewed by me, Image(s) reviewed by me Problem List/Assessment/Plan Problem List/Assessment/Plan Shortness of breath likely due to COPD exacerbation COPD exacerbation likely due to pneumonia Pneumonia likely viral versus bacterial Possible asthma with exacerbation - Solu-Medrol IV b.i.d. 40 mg - duo nebs q.6 hours - Pulmicort med neb - on IV ceftriaxone and vancomycin - COVID and influenza pending - MRSA screen pending - high eosinophilic count -pulmonology consulted Hypertensive heart disease possible heart failure - echocardiogram pending - mild bilateral pedal edema - Lasix 40 mg PUD prophylaxis: Protonix Goals of care discussed with the patient for over 31 minutes. Full code Plan discussed with Dr. Child, Dr. Costa, Jhajj Plan discussed with: Patient, Other (RN) BEVERLY GUADARRAMA RESIDENT Aug 27, 2025 19:52
--- NOTE | 2025-08-27 20:00 | DVHINCON2 ---
Date of service: Aug 27, [address] Fulton Reason for Consultation COPD exacerbation History of Present Illness A 60-year-old man with past medical history of COPD, hypertension and hyperlipidemia who presented to the ED on 08/26/25 with complaint of worsening shortness of breath x3 days. Patient reported in the last 2 months, he has been to the emergency room 3 times and has been prescribed albuterol inhaler, prednisone, Advair inhaler, which apparently patient was noncompliant with. Since Tuesday (08/23) she has been having worsening shortness of breath, worsened on lying down and has been sleeping sitting up in the chair for the past few days. Patient also reports cough, mostly dry but sometimes associated with greenish sputum. He denied any fever, chills, sick contacts or chest pain. He has been using albuterol 3 to 4 times a day. Patient was admitted for further care. Pulmonary consultation is requested for evaluation and management d/t COPD exacerbation. Review of Systems: 14-point review of systems negative unless otherwise noted above. Past Medical History: COPD, hypertension and hyperlipidemia Past Surgical History: Hernia repair Medications: Reviewed. Allergies: Morphine. Family History: No family history of premature CAD. No family history of lung disorders. Social History: Smoker. Patient reports previous history of about 15-20 pack years. Occasional alcohol intake. Denies any illicit drug use Allergies: Coded Allergies: Morphine (Verified Allergy, Unknown, 01/12/22) Home Meds Active Scripts Hydrocodone-Acetaminophen (Hydrocodone Bitartrate/AC 5-325 mg) 1 Tab Tab, 1 TAB PO Q6HR PRN, #30 TAB Prov:KULDIP AVILA MD 01/14/22 Pantoprazole Sodium Sesquihydr (Pantoprazole Sodium) 40 Mg Tab, 40 MG PO DAILY, #30 TAB Prov:KULDIP AVILA MD 01/14/22 Current Medications Current Medications Medications (Trade) Dose Ordered Sig/Serafin Route PRN Reason Start Time Stop Time Status Last Admin Methylprednisolone Sodium Succinate (Solu Medrol) 40 mg BID IV 08/26/25 22:00 08/27/25 14:41 DC 08/27/25 10:08 Furosemide (Lasix Injection) 40 mg DAILY IV 08/27/25 10:00 08/27/25 10:08 Losartan Potassium (Cozaar Tablet) 50 mg DAILY PO 08/27/25 10:00 08/27/25 10:09 Pantoprazole Sodium (Protonix Tablet) 40 mg DAILY@0600 PO 08/27/25 06:00 08/27/25 05:39 Ceftriaxone Sodium 50 ml @ 100 mls/hr DAILY@09 IV 08/27/25 09:00 08/27/25 10:07 Azithromycin (Zithromax Tablet) 500 mg DAILY PO 08/27/25 10:00 08/27/25 10:08 Budesonide (Pulmicort) 0.25 mg BID NEB 08/26/25 22:00 08/27/25 15:40 DC 08/27/25 06:43 Acetaminophen (Tylenol Tablet) 650 mg Q6HP PRN PO MILD PAIN (1-3 PAIN SCALE) 08/27/25 10:45 08/27/25 11:29 Levalbuterol HCl (Xopenex Medneb) 0.625 mg Q6HR NEB 08/27/25 18:00 08/27/25 19:14 Methylprednisolone Sodium Succinate (Solu Medrol) 40 mg Q6HR IV 08/27/25 18:00 08/27/25 17:54 Budesonide (Pulmicort) 0.5 mg BID NEB 08/27/25 22:00 08/27/25 19:14 Acetylcysteine (Mucomyst Inhalation 20%) 200 mg Q6HR NEB 08/27/25 18:00 08/30/25 17:59 08/27/25 19:15 Guaifenesin/ Codeine Phosphate (Robitussin/ Codeine Liq) 10 ml Q4HPRN PRN PO FOR COUGH 08/27/25 14:45 Vital Signs Vital Signs Date Time Temp Pulse Resp B/P (MAP) Pulse Ox O2 Delivery O2 Flow Rate FiO2 08/27/25 19:15 100 18 95 08/27/25 19:15 Room Air 08/27/25 19:15 0 21 21 08/27/25 17:00 99.0 133/72 (92) 99.0 Physical Exam Gen.: Patient lying in bed in no apparent distress. Breathing on room air. Head: Normocephalic, atraumatic. Eyes: EOMI/PERRLA. Ears: Normal hearing. Normal anatomy. Neck/trachea: Trachea midline, supple. Nose: Normal external anatomy. Mouth: Moist mucous membranes. Chest: Decreased air entry bilaterally. No wheezing or rhonchi. Cardiovascular: Positive S1, positive S2. Regular rate and rhythm. Abdomen: Positive bowel sounds in all 4 quadrants. Soft, non-tender, non- distended. : Deferred. Rectal: Deferred. Skin: Warm, dry. Intact. Extremities: 2+ radial pulses bilaterally. No lower extremity edema. Neuro: Awake, alert, oriented x3. No gross motor or sensory deficits. Cranial nerves II through XII intact. Gait not assessed. Labs/Diagnostic Data Labs Test 08/26/25 18:55 08/26/25 14:37 08/26/25 14:23 08/26/25 10:36 Range/Units Influenza Type A Antigen Negative Negative Influenza Type B Antigen Negative Negative SARS-CoV-2 Antigen (Rapid) Negative NEGATIVE Troponin I High Sensitivity 5 </=54 ng/L Urine Color Colorless Yellow Urine Clarity Clear Clear Urine pH 5.5 5.0-9.0 Urine Specific [place] 1.008 1.001-1.035 Urine Protein Negative Negative Urine Ketones Negative Negative Urine Blood Negative Negative /uL Urine Nitrite Negative Negative Urine Bilirubin Negative Negative Urine Urobilinogen Normal Negative mg/dL Urine Leukocyte Esterase Negative Negative /uL Urine RBC <1 0 - 3 /hpf Urine Microscopic WBC < 1 0-3 /HPF Urine Squamous Epithelial Cells None seen <5 /hpf Urine Bacteria None seen None Seen /hpf Urine Glucose Normal Normal mg/dL White Blood Count 7.8 4.4-10.8 10^3/uL Red Blood Count 4.01 L 4.5-5.90 10^6/uL Hemoglobin 13.2 L 13.5-17.5 g/dL Hematocrit 38.6 L 41.0-53.0 % Mean Corpuscular Volume 96.2 80.0-100.0 fL Mean Corpuscular Hemoglobin 32.8 H 28.0-32.0 pg Mean Corpuscular Hemoglobin Concent 34.0 32.0-36.0 g/dL Red Cell Distribution Width 13.6 11.8-14.3 % Platelet Count 349 140-450 10^3/uL Mean Platelet Volume 7.4 6.9-10.8 fL Neutrophils (%) (Auto) 40.1 37.0-80.0 % Lymphocytes (%) (Auto) 35.5 10.0-50.0 % Monocytes (%) (Auto) 7.4 0.0-12.0 % Eosinophils (%) (Auto) 16.3 H 0.0-7.0 % Basophils (%) (Auto) 0.7 0.0-2.0 % Neutrophils # (Auto) 3.1 1.6-8.6 10 ^3/uL Lymphocytes # (Auto) 2.8 0.4-5.4 10 ^3/uL Monocytes # (Auto) 0.6 0-1.3 10 ^3/uL Eosinophils # (Auto) 1.3 H 0-0.8 10 ^3/uL Basophils # (Auto) 0.1 0-0.2 10 ^3/uL Nucleated Red Blood Cells 0.0 % Sodium Level 144 136-145 mmol/L Potassium Level 4.3 3.5-5.1 mmol/L Chloride Level 108 H 98-107 mmol/L Carbon Dioxide Level 26 20-31 mmol/L Anion Gap 10 5-15 Blood Urea Nitrogen 11 9-23 mg/dL Creatinine 0.99 0.700-1.30 mg/dL Glomerular Filtration Rate Calc 86 >90 mL/min BUN/Creatinine Ratio 11.1 10.0-20.0 Serum Glucose 122 H 74-106 mg/dL Lactic Acid Level 1.7 0.4-2.0 mmol/L Calcium Level 9.5 8.7-10.4 mg/dL Total Bilirubin 0.2 0.2-1.0 mg/dL Aspartate Amino Transferase (AST) 16 13-40 U/L Alanine Aminotransferase (ALT) 20 7-40 U/L Alkaline Phosphatase 41 L 46-116 U/L B-Type Natriuretic Peptide 3.88 0-100 pg/mL Total Protein 7.3 5.7-8.2 g/dL Albumin 4.5 3.2-4.8 g/dL Microbiology Date/Time Source Procedure Growth Status 08/26/25 19:15 Sputum Gram Stain - Final Resulted 08/26/25 19:15 Sputum Respiratory Culture - Preliminary Resulted 08/26/25 18:55 Nose MRSA Screen - Final Complete Assessment Impression: Acute COPD exacerbation Cough, nonproductive Obesity, BMI 34.5 Nicotine dependence Plan: Supplemental oxygen PRN Titrate to keep O2 sats above 92%. Continue bronchodilators. Continue antibiotics Start Pulmicort BID Start Mucomyst Start chest percussion Incentive spirometry Monitor renal function. Monitor electrolytes. Supplement as necessary. Monitor ins and outs. Smoking cessation discussed greater than 10 minutes Recommend diet and lifestyle modifications for weight reduction Obesity complicates all care GI/DVT prophylaxis. Prognosis: Poor given patient's multiple co-morbidities. Rest of plan per hospitalist and other consultants. Thank you, Dr. Fulton, for allowing me to participate in this patient's care. Further recommendations will depend on the patient's clinical course. Please do not hesitate to contact me if you have any questions or concerns. This medical document was created using an electronic medical record system with [employer] dictation system. Although these documentations are being carefully reviewed, there may still be some phonetic and typographical changes. The errors are purely typographical, due to imperfection on the software program, and do not reflect any compromise in the patient's medical care. Plan discussed with: Patient, Other (PAULA Katz/) Visit Coding Pulmonary Billing Provider: TRISH FRANCE MD Date of Service if different f: Aug 27, 2025 Common Visit Codes: [id number] INP/OBS CARE (HIGH) TRISH FRANCE MD Aug 27, 2025 20:00
[2025-08-27] MEDS: guaiFENesin-CODEINE Liq 5 ML UD PO PRN (20:33)
[2025-08-28] VITALS (10 sets, daily range): BP systolic 127–154; BP diastolic 67–75; PULSE 82–101; RESP 16–19; TEMP 97.9–98.7; O2SAT 93–100
[2025-08-28 07:43] LABS: Hematocrit 40.5 % (41.0-53.0); Hemoglobin 13.8 g/dL (13.5-17.5); Mean Corpuscular Hemoglobin 32.9 pg (28.0-32.0); Mean Corpuscular Volume 96.6 fL (80.0-100.0); Nucleated Red Blood Cells % 0.1 %
[2025-08-28 07:47] LABS: Chloride 104 mmol/L (98-107); Potassium 4.2 mmol/L (3.5-5.1); Sodium 142 mmol/L (136-145)
--- NOTE | 2025-08-28 07:47 | DVHSR ---
APPROVED REPORT EXAM: Two-dimensional and M-mode echocardiogram with Doppler and color Doppler. Blood Pressure: 143/82 mmHg INDICATION Orthopnea RISK FACTORS Height: 70, Weight: 240 DIMENSIONS LVDd (3.8-5.7cm)LA (2D)3.6 (1.9-4.0cm)Aortic Root3.1 (2.0-3.7cm) LVDs (2.5-4.0cm)LA (MM) (1.9-4.0cm)Aortic Cusp Exc2.3 (1.5-2.0cm) EF (%) 67.0 (55-70%)Rt. Atrium4.1 (1.9-4.0cm)Asc. Aorta cm Mitral Valve MitralMitral Stenosis E wave0.89m/sMV Mean GR.mmHg A wave0.96m/sMV Peak GR.mmHg E/A ratio0.92D MVAcm2 DECEL [id number] 1/2 [id number] IVRTmsDop MVA3.75cm2 Aortic Valve Aortic ValveAortic Stenosis V11.45m/Pietro Mean GR.8mmHg V21.93m/Pietro Peak GR.15mmHg LVOT Diameter2.0 (1.8-2.4cm)Doppler AVA2.36cm2 Pulmonic Valve V21.21m/s Tricuspid Valve TR Velocity2.87m/s [id number] Conclusion lvef 65% normal rv function normal atria no severe valve abnormalities noted
[2025-08-28 07:48] LABS: Anion Gap 11 (5-15); Calcium 9.9 mg/dL (8.7-10.4); Carbon Dioxide 27 mmol/L (20-31)
[2025-08-28 08:04] LABS: Glucose 155 mg/dL (74-106)
[2025-08-28 10:38] LABS: BUN/Creatinine Ratio 15.3 (10.0-20.0); Blood Urea Nitrogen 17 mg/dL (9-23)
--- NOTE | 2025-08-28 10:48 | DVH ---
Procedure: CT CHEST WITHOUT CONTRAST Reason for study/Clinical History: SOB, h/o smoking Comparison Study: None Exam Date: 08/28/2025 08:56 AM TECHNIQUE: Multidetector CT of the chest was performed from the lung apices to the upper abdomen with out the use of intravenous contract. Axial, coronal and sagittal multiplanar reformats were performed . Radiation Dose Information: CT Dose: CTDI volume is 28.48 mGy. Dose-length product is 2.54 mGy*cm The dose indicators for CT are the volume Computed Tomography (CT) Dose Index (CTDIvol) and the Dose Length Product (DLP), and are measured in units of mGy and mGy-cm, respectively. These indicators are not patient dose, but values generated from the CT scanner acquisition factors. The report includes radiation exposure data for exposures received during this examination. FINDINGS: Lower neck: Normal thyroid. Lungs: No focal consolidation, pleural effusion or pneumothorax. No pulmonary nodules. Max lung RADS: 1 Heart/Vascular Structures: Normal heart size. No pericardial effusion. Lymph Nodes: No adenopathy Pleura: No pleural effusion or significant pneumothorax. Musculoskeletal: No acute osseous abnormality. Soft tissues: Normal. Upper abdomen: Limited portions of the upper abdomen are unremarkable. IMPRESSION: 1. No acute intrathoracic abnormality. 2. No pulmonary nodules visualized 3. Max Lung RADS: 1 HS:Y Radiation optimization: All CT scans at this facility use at least one of these dose optimization angel hniques: automated exposure control mA and/or kV adjustment per patient size (includes targeted exam s where dose is matched to clinical indication) or iterative reconstruction.
[2025-08-28] MEDS ORDERED: FURO20TA3 PO (14:27)
[2025-08-28] MEDS ORDERED: AZIT-43 PO (14:27)
[2025-08-28] MEDS ORDERED: PRED20TA2 PO (14:27)
[2025-08-28] MEDS ORDERED: FLUT1AER3 IN (14:27)
[2025-08-28] MEDS ORDERED: ALBUAER3 IN (14:27)
[2025-08-28] MEDS ORDERED: LOSA-534 PO (14:27)
[2025-08-28] MEDS ORDERED: AUG875T PO (14:27)
--- NOTE | 2025-08-28 16:13 | DVHDSRES ---
Discharge Summary Date of Admission Resident Creating Document: BEVERLY GUADARRAMA Aug 26, 2025 at 17:06 Date of Discharge: Aug 28, 2025 Admitting Diagnosis Acute exacerbation of COPD Labs/Diagnostic Data: Laboratory Results Test 08/28/25 07:02 08/26/25 18:55 08/26/25 14:37 08/26/25 14:23 White Blood Count 12.0 10^3/uL (4.4-10.8) Red Blood Count 4.19 10^6/uL (4.5-5.90) Hemoglobin 13.8 g/dL (13.5-17.5) Hematocrit 40.5 % (41.0-53.0) Mean Corpuscular Volume 96.6 fL (80.0-100.0) Mean Corpuscular Hemoglobin 32.9 pg (28.0-32.0) Mean Corpuscular Hemoglobin Concent 34.0 g/dL (32.0-36.0) Red Cell Distribution Width 14.2 % (11.8-14.3) Platelet Count 379 10^3/uL (140-450) Mean Platelet Volume 7.5 fL (6.9-10.8) Neutrophils (%) (Auto) 87.0 % (37.0-80.0) Lymphocytes (%) (Auto) 9.4 % (10.0-50.0) Monocytes (%) (Auto) 2.9 % (0.0-12.0) Eosinophils (%) (Auto) 0.0 % (0.0-7.0) Basophils (%) (Auto) 0.7 % (0.0-2.0) Neutrophils # (Auto) 10.4 10 ^3/uL (1.6-8.6) Lymphocytes # (Auto) 1.1 10 ^3/uL (0.4-5.4) Monocytes # (Auto) 0.3 10 ^3/uL (0-1.3) Eosinophils # (Auto) 0 10 ^3/uL (0-0.8) Basophils # (Auto) 0.1 10 ^3/uL (0-0.2) Nucleated Red Blood Cells 0.1 % Sodium Level 142 mmol/L (136-145) Potassium Level 4.2 mmol/L (3.5-5.1) Chloride Level 104 mmol/L (98-107) Carbon Dioxide Level 27 mmol/L (20-31) Anion Gap 11 (5-15) Blood Urea Nitrogen 17 mg/dL (9-23) Creatinine 1.11 mg/dL (0.700-1.30) Glomerular Filtration Rate Calc 75 mL/min (>90) BUN/Creatinine Ratio 15.3 (10.0-20.0) Serum Glucose 155 mg/dL (74-106) Calcium Level 9.9 mg/dL (8.7-10.4) Influenza Type A Antigen Negative (Negative) Influenza Type B Antigen Negative (Negative) SARS-CoV-2 Antigen (Rapid) Negative (NEGATIVE) Troponin I High Sensitivity 5 ng/L (</=54) Urine Color Colorless (Yellow) Urine Clarity Clear (Clear) Urine pH 5.5 (5.0-9.0) Urine Specific [place] 1.008 (1.001-1.035) Urine Protein Negative (Negative) Urine Ketones Negative (Negative) Urine Blood Negative /uL (Negative) Urine Nitrite Negative (Negative) Urine Bilirubin Negative (Negative) Urine Urobilinogen Normal mg/dL (Negative) Urine Leukocyte Esterase Negative /uL (Negative) Urine RBC <1 /hpf (0 - 3) Urine Microscopic WBC < 1 /HPF (0-3) Urine Squamous Epithelial Cells None seen /hpf (<5) Urine Bacteria None seen /hpf (None Seen) Urine Glucose Normal mg/dL (Normal) Test 08/26/25 10:36 Lactic Acid Level 1.7 mmol/L (0.4-2.0) Total Bilirubin 0.2 mg/dL (0.2-1.0) Aspartate Amino Transferase (AST) 16 U/L (13-40) Alanine Aminotransferase (ALT) 20 U/L (7-40) Alkaline Phosphatase 41 U/L (46-116) B-Type Natriuretic Peptide 3.88 pg/mL (0-100) Total Protein 7.3 g/dL (5.7-8.2) Albumin 4.5 g/dL (3.2-4.8) Other Laboratory Tests 08/28/25 07:02 Brief Hx & Hospital Course: Patient is a 60-year-old male with no significant past medical history presented to the ED with a chief complaint of worsening shortness of breath for the last 3 days. Patient reports that in the last 2 months he has been to the emergency room 3 times and has been prescribed albuterol inhaler, prednisone, Advair inhaler which apparently held with the patient was noncompliant. Since Tuesday she has been having worsening shortness of breath, worsened on lying down and reports that he has been sleeping sitting up in the chair for the last few days. Patient also reports of cough mostly dry but sometimes associated with greenish sputum. He denies any fever, chills, recent sick contacts. He has been using albuterol 3 to 4 times a day. He denied any chest pain and does not report any history of cardiomyopathy/LA in the past. Past medical history: Possible COPD Surgical history: None Home medications: Albuterol inhaler as needed, Advair inhaler Social history: Patient reports previous history of about 15-20 pack year, occasional alcohol intake but denies any drug use The patient was treated with COPD exacerbation likely due to pneumonia. Was being treated with Solu-Medrol IV b.i.d. 40 mg, DuoNebs, IV ceftriaxone and vancomycin COVID influenza came back negative. He was treated with Pulmicort, Mucomyst and chest physiotherapy was given. MRSA screen negative. Echocardiography was done to rule out heart failure, which revealed LV ejection fraction 65% and all other ventricular functions are normal. Pulmonology was consulted which advised the patient to stop smoking and advised to adopt healthy lifestyle for obesity. A chest CT scan was done, which reveals no significant abnormality. On the day of discharge the patient was hemodynamically stable, saturating 93% on walk test, the sister and the patient was explained the treatment and discharge plan. They verbalized understanding. Examination Exam Gen - no pallor, no icterus, no cyanosis, no clubbing, bilateral 2+ pitting edema Skin - Patients skin is warm and dry. HEENT - normocephalic, atraumatic, moist mucous membranes. Neck - full ROM, no LAD, no JVD Pulmonary - B/L equal breath sounds, mild diffuse rhonchi, diffuse expiratory wheezing cardiovascular - regular S1,S2 heard, no added sounds, no murmurs heard. peripheral pulses normal radial 2+, pedal 2+ GI - soft, nontender abdomen. no hepatospleenomegaly. Bowel sounds normoactive Neurological - Patient is A/O X 3 . Bilateral upper extremity strength 5/5, bilateral lower extremity strength 5/5, no facial droop, normal speech, no tremor, no sensory deficiets. Case discussed with . Operations or Procedures [facility] [address] [facility] [address] Ph: [phone] DIAGNOSTIC IMAGING Diagnostic Imaging Report : [id number] Signed PATIENT: JAZZMINE CARROLL ACCT: [id number] UNIT: [id number] : 1965 LOC: [facility] ROOM / BED: [facility] / B AGE / SEX: 60 / M ADM STATUS: ADM IN SERVICE 653 ORDERING PHYSICIAN: WANG TENORIO RESIDENT PROCEDURE(s): ECIDC - ECHO 2D MODE CARDIAC DOP REASON: orhtopnea, SOB ORDER NUMBER(s): [id number], ACCESSION NUMBER(s): [id number] APPROVED REPORT EXAM: Two-dimensional and M-mode echocardiogram with Doppler and color Doppler. Blood Pressure: 143/82 mmHg INDICATION Orthopnea RISK FACTORS Height: 70, Weight: 240 DIMENSIONS LVDd (3.8-5.7cm) LA (2D) 3.6 (1.9-4.0cm) Aortic Root 3.1 (2.0- 3.7cm) LVDs (2.5-4.0cm) LA (MM) (1.9-4.0cm) Aortic Cusp Exc 2.3 (1.5- 2.0cm) EF (%) 67.0 (55-70%) Rt. Atrium 4.1 (1.9-4.0cm) Asc. Aorta cm Mitral Valve Mitral Mitral Stenosis E wave 0.89m/s MV Mean GR. mmHg A wave 0.96m/s MV Peak GR. mmHg E/A ratio 0.9 2D MVA cm2 DECEL Time 282ms PRESS 1/2 Time 59ms IVRT ms Dop MVA 3.75cm2 Aortic Valve Aortic Valve Aortic Stenosis V1 1.45m/s AO Mean GR. 8mmHg V2 1.93m/s AO Peak GR. 15mmHg LVOT Diameter 2.0 (1.8-2.4cm) Doppler JENNIFER 2.36cm2 Pulmonic Valve V2 1.21m/s Tricuspid Valve TR Velocity 2.87m/s RVSP 37mmHg Conclusion lvef 65% normal rv function normal atria no severe valve abnormalities noted SIGNED BY: TRISTEN TRUJILLO MD SIGNED DATE/TIME: 08/28/2502 CC: [address] [address] Ph: [phone] DIAGNOSTIC IMAGING Diagnostic Imaging Report : [id number] Signed PATIENT: JAZZMINE CARROLL ACCT: [id number] UNIT: [id number] : 1965 LOC: [facility] ROOM / BED: 0296 / B AGE / SEX: 60 / M ADM STATUS: ADM IN SERVICE 7 ORDERING PHYSICIAN: WANG TENORIO RESIDENT PROCEDURE(s): CX2CT - CHEST WITHOUT CONTRAST REASON: SOB, h/o smoking ORDER NUMBER(s): [id number], ACCESSION NUMBER(s): [id number] Procedure: CT CHEST WITHOUT CONTRAST Reason for study/Clinical History: SOB, h/o smoking Comparison Study: None Exam Date: 08/28/2025 08:56 AM TECHNIQUE: Multidetector CT of the chest was performed from the lung apices to the upper abdomen without the use of intravenous contract. Axial, coronal and sagittal multiplanar reformats were performed. Radiation Dose Information: CT Dose: CTDI volume is 28.48 mGy. Dose-length product is 2.54 mGy*cm The dose indicators for CT are the volume Computed Tomography (CT) Dose Index (CTDIvol) and the Dose Length Product (DLP), and are measured in units of mGy and mGy-cm, respectively. These indicators are not patient dose, but values generated from the CT scanner acquisition factors. The report includes radiation exposure data for exposures received during this examination. FINDINGS: Lower neck: Normal thyroid. Lungs: No focal consolidation, pleural effusion or pneumothorax. No pulmonary nodules. Max lung RADS: 1 Heart/Vascular Structures: Normal heart size. No pericardial effusion. Lymph Nodes: No adenopathy Pleura: No pleural effusion or significant pneumothorax. Musculoskeletal: No acute osseous abnormality. Soft tissues: Normal. Upper abdomen: Limited portions of the upper abdomen are unremarkable. IMPRESSION: 1. No acute intrathoracic abnormality. 2. No pulmonary nodules visualized 3. Max Lung RADS: 1 HS:Y Radiation optimization: All CT scans at this facility use at least one of these dose optimization techniques: automated exposure control mA and/or kV adjustment per patient size (includes targeted exams where dose is matched to clinical indication) or iterative reconstruction. ATED BY: JAZZMINE BARRETO Jr., DO DICTATED DATE/TIME: 08/28/251045 SIGNED BY: JAZZMINE BARRETO Jr., DO SIGNED DATE/TIME: 08/28/251045 [place] [address] Ph: [phone] DIAGNOSTIC IMAGING Diagnostic Imaging Report : [id number] Signed PATIENT: JAZZMINE CARROLL ACCT: [id number] UNIT: [id number] : 1965 LOC: ER ROOM / BED: / AGE / SEX: 60 / M ADM STATUS: REG ER SERVICE 24 ORDERING PHYSICIAN: VALE GRIFFITH DO PROCEDURE(s): CXRP - CHEST PORTABLE REASON: cp/sob/cough ORDER NUMBER(s): [id number], ACCESSION NUMBER(s): [id number] CHEST RADIOGRAPH Indication: cp/sob/cough Technique: XY CHEST PORTABLE Comparison: None FINDINGS: The cardiac silhouette is unremarkable. The lungs demonstrate no pulmonary airspace consolidation. The pulmonary vasculature is unremarkable. There is no pleural effusion. There is no pneumothorax. IMPRESSION: No pulmonary airspace consolidation. ATED BY: MAGO ROSS MD DICTATED DATE/TIME: 08/26/251216 SIGNED BY: MAGO ROSS MD SIGNED DATE/TIME: 08/26/251216 CC: Condition at Discharge: Stable Final Diagnosis/Problems List Acute exacerbation of COPD Acute COPD exacerbation due to pneumonia Pneumonia due to viral versus Gram-positive or Gram-negative bacteria Asthma with exacerbation Obesity Hypertensive heart disease possible heart failure Discharge Disposition: Home Discharge Instruct/Medications Diet: Consistent carbohydrate Activity: No Restrictions, As Tolerated Follow Up/Referral: Follow up with PCP and DC clinic in 2 weeks Medications: As per EMR Scheduled Amoxicillin & Pot Clavulanate (Augmentin Tablet), 875 MG PO BID Azithromycin (Azithromycin), 250 MG PO DAILY Loayqlxprce-Tagthucyaimx-Ppekw (Trelegy Ellipta 100-62.5-25 Mcg/INH), 1 PUFF IN DAILY Furosemide (Furosemide), 20 MG PO DAILY Losartan Potassium (Losartan Potassium), 50 MG PO DAILY Pantoprazole Sodium Sesquihydr (Pantoprazole Sodium), 40 MG PO DAILY Prednisone (Prednisone), 40 MG PO DAILY Scheduled PRN Albuterol Sulfate (Ventolin Mdi), 2 PUFF IN Q6HP PRN Hydrocodone-Acetaminophen (Hydrocodone Bitartrate/AC 5-325 mg), 1 TAB PO Q6HR PRN Discharge Statement: "Patient was advised to return to the ER or call 911 if any headaches, dizziness, shortness of breath, chest pain, abdominal pain, bleeding, fevers, or worsening of medical condition. Patient was counseled about treatment plan, medications, possible side effects, patientverbalized understanding. All questions were answered to the best of my ability. This discharge took greater then 30 minutes in planning, reviewing documentation, counseling the patient, and discussing with other team members." ASSESSMENT ASSESSMENT Assessment Acute exacerbation of COPD BEVERLY GUADARRAMA Aug 28, 2025 16:13
--- NOTE | 2025-08-28 21:50 | DVHPN2 ---
Subjective DOS: 08/28/2025 Patient seen and examined at bedside. Breathing comfortably on room air. Overnight events reviewed. Changes from previous H/P or p: No Changes Objective Vitals Vital Signs Date Time Temp Pulse Resp B/P (MAP) Pulse Ox O2 Delivery O2 Flow Rate FiO2 08/28/25 13:00 98.7 101 19 127/73 (91) 94 98.7 08/28/25 09:01 Room Air* 0 21 Intake/Output Intake and Output 08/28/25 07:00 Intake Total 800 ml Balance 800 ml Intake Oral 800 ml # Voids 7 Exam Gen.: Patient lying in bed in no apparent distress. Breathing on room air. Head: Normocephalic, atraumatic. Eyes: EOMI/PERRLA. Ears: Normal hearing. Normal anatomy. Neck/trachea: Trachea midline, supple. Nose: Normal external anatomy. Mouth: Moist mucous membranes. Chest: Decreased air entry bilaterally. No wheezing or rhonchi. Cardiovascular: Positive S1, positive S2. Regular rate and rhythm. Abdomen: Positive bowel sounds in all 4 quadrants. Soft, non-tender, non- distended. : Deferred. Rectal: Deferred. Skin: Warm, dry. Intact. Extremities: 2+ radial pulses bilaterally. No lower extremity edema. Neuro: Awake, alert, oriented x3. No gross motor or sensory deficits. Cranial nerves II through XII intact. Gait not assessed. Laboratory Results Laboratory Tests 08/28/25 07:02 Chemistry Test 08/28/25 07:02 Calcium Level 9.9 mg/dL (8.7-10.4) Urinalysis Test 08/26/25 14:23 Urine Color Colorless (Yellow) Urine Clarity Clear (Clear) Urine pH 5.5 (5.0-9.0) Urine Specific [place] 1.008 (1.001-1.035) Urine Protein Negative (Negative) Urine Ketones Negative (Negative) Urine Blood Negative /uL (Negative) Urine Nitrite Negative (Negative) Urine Bilirubin Negative (Negative) Urine Urobilinogen Normal mg/dL (Negative) Urine Leukocyte Esterase Negative /uL (Negative) Urine RBC <1 /hpf (0 - 3) Urine Microscopic WBC < 1 /HPF (0-3) Urine Squamous Epithelial Cells None seen /hpf (<5) Urine Bacteria None seen /hpf (None Seen) Urine Glucose Normal mg/dL (Normal) Microbiology Microbiology Date/Time Source Procedure Growth Status 08/26/25 20:46 Blood Blood Culture - Preliminary NO GROWTH AFTER 48 HOURS OF INCUBATION. Resulted 08/26/25 19:15 Sputum Gram Stain - Final Resulted 08/26/25 19:15 Sputum Respiratory Culture - Preliminary Resulted 08/26/25 18:55 Nose MRSA Screen - Final Complete Assessment/Plan Assessment/Plan Impression: Acute COPD exacerbation Cough, nonproductive Obesity, BMI 34.5 Nicotine dependence Events: Breathing on room air Supplemental oxygen PRN No acute overnight events. CT chest shows no acute opacities. No evidence of pulmonary nodules. Continue bronchodilators Continue steroids Continue antibiotics Antitussive PRN cough Incentive spirometry Labs and imaging reviewed. Rest of plan as noted below. Plan: Supplemental oxygen PRN Titrate to keep O2 sats above 92%. Continue bronchodilators. Continue antibiotics Pulmicort BID Mucomyst/Chest percussion Incentive spirometry Monitor renal function. Monitor electrolytes. Supplement as necessary. Monitor ins and outs. Smoking cessation discussed greater than 10 minutes Recommend diet and lifestyle modifications for weight reduction Obesity complicates all care GI/DVT prophylaxis. Prognosis: Poor given patient's multiple co-morbidities. Rest of plan per hospitalist and other consultants. Thank you, Dr. Fulton, for allowing me to participate in this patient's care. Further recommendations will depend on the patient's clinical course. Please do not hesitate to contact me if you have any questions or concerns. This medical document was created using an electronic medical record system with [employer] dictation system. Although these documentations are being carefully reviewed, there may still be some phonetic and typographical changes. The errors are purely typographical, due to imperfection on the software program, and do not reflect any compromise in the patient's medical care. Plan discussed with: Patient, Other (PAULA Anaya) Visit Coding Pulmonary Billing Provider: TRISH FRANCE MD Date of Service if different f: Aug 28, 2025 Common Visit Codes: [id number] INP/OBS CARE(HIGH) TRISH FRANCE MD Aug 28, 2025 21:50
== END 2025-08-28 17:30 | disposition home or self-care (01) | DRG 178 ==
LOC: ER 11:14 → OVERFLOW 17:06 → WEST WING 23:56
PROVIDERS: ADMIT Internal Medicine Geriatric Medicine; ATTEND Internal Medicine Geriatric Medicine
DX: J15.69 Pneumonia due to other Gram-negative bacteria (principal); J44.1 Chronic obstructive pulmonary disease with (acute) exacerbation; J45.901 Unspecified asthma with (acute) exacerbation; J12.9 Viral pneumonia, unspecified; J15.9 Unspecified bacterial pneumonia; E66.9 Obesity, unspecified; I11.0 Hypertensive heart disease with heart failure; E78.5 Hyperlipidemia, unspecified; F17.210 Nicotine dependence, cigarettes, uncomplicated; I50.9 Heart failure, unspecified; Z68.34 Body mass index [BMI] 34.0-34.9, adult; Z91.199 Patient's noncompliance with other medical treatment and regimen due to unspecified reason; Z79.899 Other long term (current) drug therapy
CPT/HCPCS: 36415; 71045; 71250; 80048; 80053; 81001; 83605; 83880; 84484; 85025; 87040; 87070; 87081; 87205; 87426; 87804; 93005; 93306; 94640; 96374; 99291; G0378